=== PATIENT | female | born 1940 | race Caucasian/White ===

== ENCOUNTER → 2016-10-18 | Outpatient (CLI) | payer MEDICARE, OTHER ==
[~2016-10-18] MED LIST: BONIVA150 MG PO; DIOVAN80 MG PO; DONNATAL PO; FLOVENT DI50 MCG/ACT IH; LOPID600 MG PO; MYRBETRIQ25 MG PO; OXAZEPAM15 MG PO; SANCTURA XR60 MG PO; SYNTHROID 0.1M0.1 MG PO; TESSALON PERLE100 M1 PO; ZONATUSS150 MG PO
--- NOTE | 2016-10-21 08:43 | RADIOLOGY REPORT PS360 ---
DIG MAMM-SCREEN DUSTY W/CAD CAD Screening ORDERING PHYSICIAN : Jo-Ann Farias MD PATIENT AGE: 75 years GENDER: Female COMPARISON: Previous mammograms: July 1999 June and 2011 INDICATION: Routine screening 75-year-old no hormones no new complaints previous stereotactic biopsy right and left breast. Biopsy scar at 10:00 left breast. Noncontributory family history TECHNIQUE: Standard CC and MLO images were obtained. R2 CAD reviewed. FINDINGS: Minimal fibroglandular elements bilaterally. Stable areas of minor nodularity bilaterally. Right breast demonstrates a metallic marker at 12-1:00 from previous stereotactic biopsy. A stable appearance in this region. Minimal nodularity central left breast unchanged since studies dating back to 2011. Not of concern. Can be followed . IMPRESSION: Stable bilateral mammogram with No new areas of concern Bilateral follow-up one year BI-RADS CATEGORY: 2_Benign RECOMMENDED FOLLOWUP: 12M 12 MONTH FOLLOW-UP (A letter has been sent to the patient regarding results of the study.)
== END ==
LOC: RAD 10:27
DX: Z12.31 Encounter for screening mammogram for malignant neoplasm of breast (principal)
CPT/HCPCS: G0202